=== PATIENT | female | born 1985 | race Caucasian/White ===

== ENCOUNTER 2020-11-20 10:28 | Outpatient (CLI) | payer BC, SELFPAY ==
--- NOTE | ~2020-11-20 | US_ITS ---
EXAMINATION: US thyroid EXAM DATE: 11/20/2020 10:57 INDICATION: E01.0 - Iodine-deficiency related diffuse (endemic) goiter. TECHNIQUE: Multiple grayscale and Doppler images of the thyroid were obtained (by a technologist who performed the scan) and subsequently reviewed. Individual nodules and recommendations may be reporte d in accordance with TI-RADS system as designated by the 2017 ACR White Paper TI-RADS committee. The re is no prior study for comparison. FINDINGS: Mildly diffusely heterogeneous and hypervascular thyroid echotexture. The right there are lobe measur es 4.7 x 1.9 x 1.3 cm, the left measuring 4.0 x 1.5 x 1.3 cm. Measurements are within normal size alexis its. No focal nodule identified. IMPRESSION: Mildly heterogeneous hypervascular thyroid echotexture. Nonspecific. Reviewed, dictated and finalized at location A. IMPRESSION: Mildly heterogeneous hypervascular thyroid echotexture. Nonspecific .
== END 2020-11-20 10:29 | disposition home or self-care (01) ==
PROVIDERS: PCP Family Medicine; Visit Provider Physician Assistant
DX: E01.0 Iodine-deficiency related diffuse (endemic) goiter (principal)
CPT/HCPCS: 76536